=== PATIENT | female | born 1990 | race Caucasian/White ===

== ENCOUNTER 2021-10-18 23:26 | Emergency (ER) | payer OTHER ==
[~2021-10-18] VITALS: Ht 165.1 cm; Wt 78.5 kg
[2021-10-18 23:49] VITALS: BP 153/74
--- NOTE | 2021-10-18 23:49 | NUR ---
Dr. Henley at triage to exam patient.
[2021-10-19] MEDS ORDERED: CEPH-588 PO (00:09)
[2021-10-19] MEDS ORDERED: IBUP-1801 PO (00:09)
[2021-10-19] MEDS ORDERED: IBUPROFEN 800 MG TAB PO ONE (00:10)
[2021-10-19] MEDS ORDERED: cephALEXin 500 MG CAP PO ONE (00:10)
[2021-10-19 00:31] VITALS: BP 142/67
--- NOTE | 2021-10-19 00:31 | NUR ---
Patient discharged with v/s stable. Written and verbal after care instructions given and explained. Patient alert, oriented and verbalized understanding of instructions. Ambulatory with steady gait. All questions addressed prior to discharge. ID band removed. Patient advised to follow up with PMD. Rx of Keflex and Ibuprofen given. Patient educated on indication of medication including possible reaction and side effects. Opportunity to ask questions provided and answered.
== END 2021-10-19 00:31 | disposition home or self-care (01) ==
LOC: MED 23:26
DX: L03.317 Cellulitis of buttock (principal); F17.210 Nicotine dependence, cigarettes, uncomplicated; Z79.899 Other long term (current) drug therapy
CPT/HCPCS: 81025; 99283